=== PATIENT | male | born 1980 | race Hispanic/Latino ===

== ENCOUNTER → 2021-06-18 10:03 | Outpatient (CLI) | payer BC, SELFPAY ==
--- NOTE | ~2021-06-18 | US_ITS ---
EXAMINATION: US abdomen complete DATE: 06/18/2021 10:25 INDICATION: Fatty change of liver, not elsewhere classified. Abnormal liver function tests. TECHNIQUE: Multiple grayscale and Doppler ultrasound images of the abdomen were obtained. COMPARISON: None FINDINGS: The visualized portions of the head, body, and tail of the pancreas are normal. There is di ffuse hepatic steatosis. No liver surface nodularity. There is normal flow in main portal vein. The g allbladder is normal in size. No gallstones or gallbladder wall thickening. There was no sonographic Gayle sign. The common duct is normal and measures 4 mm. Abdominal aorta is normal in caliber. Infer ior vena cava is normal. The kidneys are normal in size. The spleen is normal in size. IMPRESSION: 1. Diffuse hepatic steatosis. Reviewed, dictated and finalized at location B. IST INSTRUMENTATION
== END ==
PROVIDERS: PCP Emergency Medicine; Visit Provider Emergency Medicine
DX: K76.0 Fatty (change of) liver, not elsewhere classified (principal)
CPT/HCPCS: 76700